=== PATIENT | female | born 1945 | race Hispanic/Latino ===

== ENCOUNTER 2017-02-26 12:41 | Outpatient (CLI) | payer MEDICARE ==
--- NOTE | 2017-02-26 15:45 | Magnetic Resonance Report ---
MRI of the cervical spine. History: Cervical radiculopathy. Procedure: Sagittal T1-weighted, T2-weighted, inversion recovery, and axial T2-weighted images were used in the study. The study is compromised by patient motion artifact on several sequences. Findings: There is exaggerated cervical lordosis. Alignment is normal otherwise. The C2-3 and C3-4 levels are unremarkable. At C4-5, there is moderate disc space narrowing with posterior hypertrophic changes, mild effacement of the anterior thecal sac, and bilateral mild foraminal stenosis. There is mild posterior ligamentous hypertrophy. The C5-6 level is unremarkable. At C6-7, there is mild uncovertebral joint hypertrophy with right foraminal stenosis. C7-T1 level is unremarkable. There is no abnormal signal within the cervical cord. The cervical medullary junction is normal. The position of the cerebellar tonsils is normal. Impression: 1. 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 2. Uncovertebral joint hypertrophy is present at C6-7 with right foraminal stenosis. 3. Exaggerated cervical lordosis.
== END 2017-02-26 12:42 | disposition home or self-care (01) ==
LOC: SPVIMAG 12:41
PROVIDERS: ATTEND Psychiatry & Neurology Neurology
DX: M48.02 Spinal stenosis, cervical region (principal); M50.122 Cervical disc disorder at C5-C6 level with radiculopathy; M40.292 Other kyphosis, cervical region; M24.28 Disorder of ligament, vertebrae
CPT/HCPCS: 72141